=== PATIENT | male | born 1975 ===

== ENCOUNTER 2022-01-26 10:51 | Observation (INO) ==
[~2022-01-26 10:51] MED LIST: Buffered Lidocaine 1% SYRIN 1 ml INTRADERM ONE; Lactated Ringers 1000 ml BAG 1,000 ML IV SCH; Naloxone 0.4 mg VIAL 0.4 mg/ml 1 ml VIAL IV PRN; Ondansetron 4 mg VIAL 2 MG/ML 2 ml VIAL IV PRN; fentaNYL 100 mcg/2 ml 50 MCG/ML VIAL IV PRN
[2022-01-26] MEDS ORDERED: ceFAZolin 2 GM PREMIX 2 GM/50 ML BAG ONE (11:12)
[2022-01-26] MEDS ORDERED: ceFAZolin 1 GM in Dextrose 1 GM/50 ML BAG ONE (11:12)
[2022-01-26] MEDS ORDERED: Vancomycin 1,000 MG VIAL ONE (13:32)
[2022-01-26] MEDS ORDERED: Propofol 10 MG/ML 20 ML BTL ONE (13:33)
[2022-01-26] MEDS ORDERED: Lidocaine 2% PF 5 ML VIAL ONE (13:34)
[2022-01-26] MEDS ORDERED: Midazolam 2 mg/2 ml VIAL 1 mg/ml 2 ml VIAL (2 mg) ONE (13:37)
[2022-01-26] MEDS ORDERED: Rocuronium 50 mg VIAL 10 mg/ml 5 ml VIAL (50 mg) ONE ×2 (14:08→15:18)
[2022-01-26] MEDS ORDERED: fentaNYL 250 mcg/5 ml 50 MCG/ML 5 ml VIAL (250 MCG) ONE (14:12)
[2022-01-26] MEDS ORDERED: HYDROmorphone 0.5 MG/0.5 ML SYRINGE ONE (14:54)
[2022-01-26] MEDS ORDERED: Glycopyrrolate IV 0.2 MG/ML 1 ML VIAL ONE (14:56)
[2022-01-26] MEDS ORDERED: Ondansetron 4 mg VIAL 2 MG/ML 2 ml VIAL ONE (15:01)
[2022-01-26] MEDS ORDERED: Dexamethasone IV 4 MG/ML VIAL 1 ml VIAL ONE (15:01)
[2022-01-26] MEDS ORDERED: Acetaminophen IV 1 GM/100ML 1,000 MG/100 ML BAG IV ONE (15:03)
[2022-01-26] MEDS ORDERED: fentaNYL 100 mcg/2 ml 50 MCG/ML VIAL ONE (15:21)
[2022-01-26] MEDS ORDERED: Morphine 2 MG/ML SYRINGE IV PRN (17:13)
[2022-01-26] MEDS ORDERED: Lactulose 30 ml UDC PO PRN (17:13)
[2022-01-26] MEDS ORDERED: Ondansetron 4 mg VIAL 2 MG/ML 2 ml VIAL IV PRN (17:13)
[2022-01-26] MEDS ORDERED: Ondansetron ODT 4 mg TAB 4 MG TAB PO PRN (17:13)
[2022-01-26] MEDS ORDERED: Magnesium Hydroxide LIQ 30 ML UDC PO PRN (17:13)
[2022-01-26] MEDS: Lactated Ringers 1000 ml BAG 1,000 ML IV SCH (18:32)
[2022-01-26] MEDS ORDERED: Dextrose 50% Syringe 50 ml 25 GM/50 ML SYRINGE IV PUSH PRN (19:46)
[2022-01-26] MEDS: Magnesium Hydroxide LIQ 30 ML UDC PO SCH (21:06)
[2022-01-26] MEDS: ceFAZolin 1 GM ADVAN 1 GM in NS 0.9% 50 ML 50 ML IVPB SCH (22:56)
[2022-01-27] MEDS: ceFAZolin 1 GM ADVAN 1 GM in NS 0.9% 50 ML 50 ML IVPB SCH ×2 (05:16→15:01)
[2022-01-27 05:28] LABS: Hematocrit 33 % (42-52); Mean Platelet Volume 7.8 fL (7.4-10.4); Platelet Count 225 10^3/uL (150-450)
[2022-01-27 05:52] LABS: Calcium 8.5 mg/dL (8.6-10.3); Potassium 4.5 mmol/L (3.5-5.0); eGFR CKD-EPI 115.7 (>60)
[2022-01-27] MEDS: Vitamin THERAPEUTIC TAB PO SCH (07:55)
[2022-01-27] MEDS: Magnesium Hydroxide LIQ 30 ML UDC PO SCH ×2 (07:57→21:37)
[2022-01-27] MEDS: Lactated Ringers 1000 ml BAG 1,000 ML IV SCH ×2 (13:54→18:54)
[2022-01-27 16:00] LABS: ABS Lymphocytes 1.6 10^3/ul (1.0-4.8); ABS Neutrophils 7.9 10^3/ul (1.5-7.7); Eosinophil % 0.4 %; Hematocrit 32 % (42-52); Hemoglobin 10.8 g/dL (14.0-18.0); Lymphocyte % 14.9 %; Mean Corpuscular HGB Conc 33 g/dL (31-36); Mean Corpuscular Hemoglobin 30 pg (27-31); Mean Corpuscular Volume 91 fL (80-94); Mean Platelet Volume 7.3 fL (7.4-10.4); Platelet Count 212 10^3/uL (150-450); Red Blood Count 3.57 10^6 /uL (4.18-5.48); Red Cell Distribution Width 14 % (10-15); White Blood Count 10.5 10^3/uL (3.5-10.8)
[2022-01-27 17:24] LABS: Albumin 3.5 g/dL (3.2-5.2); Albumin/Globulin Ratio 1.7 (1-3); Calcium 8.6 mg/dL (8.6-10.3); Globulin 2.1 g/dL (2-4); Magnesium 1.8 mg/dL (1.9-2.7); Potassium 4.2 mmol/L (3.5-5.0); Total Bilirubin 0.6 mg/dL (0.2-1.0); Total Protein 5.6 g/dL (6.4-8.9); eGFR CKD-EPI 109.2 (>60)
[2022-01-27 17:47] LABS: High Sensitivity Troponin 1 Hr 3 pg/mL (<20)
[2022-01-27] MEDS ORDERED: Magnesium Sulfate IV 1GM/100ML 1 GM/100 ML BAG IV ONE (18:05)
[2022-01-28] MEDS: Lactated Ringers 1000 ml BAG 1,000 ML IV SCH (05:50)
[2022-01-28 06:09] LABS: Hematocrit 30 % (42-52); Mean Platelet Volume 7.4 fL (7.4-10.4); Platelet Count 193 10^3/uL (150-450)
[2022-01-28] MEDS: Magnesium Hydroxide LIQ 30 ML UDC PO SCH (08:36)
[2022-01-28] MEDS: Vitamin THERAPEUTIC TAB PO SCH (08:36)
[2022-01-28 11:01] VITALS: BP 100/63
== END 2022-01-28 16:30 | disposition home or self-care (01) ==
LOC: OR 10:51 → SSU 10:51
PROVIDERS: ADMIT Orthopaedic Surgery; ATTEND Orthopaedic Surgery

== ENCOUNTER 2022-03-06 10:00 | Inpatient (IN) ==
[2022-03-06 11:08] LABS: ABS Basophils 0.1 10^3/ul (0-0.2); ABS Eosinophils 0.2 10^3/ul (0-0.6); ABS Lymphocytes 1.4 10^3/ul (1.0-4.8); ABS Monocytes 0.5 10^3/ul (0-0.8); ABS Neutrophils 3.6 10^3/ul (1.5-7.7); Eosinophil % 3.6 %; Hematocrit 39 % (42-52); Hemoglobin 13.1 g/dL (14.0-18.0); Lymphocyte % 24.4 %; Mean Corpuscular HGB Conc 34 g/dL (31-36); Mean Corpuscular Hemoglobin 31 pg (27-31); Mean Corpuscular Volume 92 fL (80-94); Mean Platelet Volume 6.7 fL (7.4-10.4); Platelet Count 297 10^3/uL (150-450); Red Blood Count 4.28 10^6 /uL (4.18-5.48); Red Cell Distribution Width 14 % (10-15); White Blood Count 5.8 10^3/uL (3.5-10.8)
[2022-03-06 11:48] LABS: C Reactive Protein 10.63 mg/L (<8.01)
[2022-03-06 13:22] LABS: Albumin/Globulin Ratio 1.4 (1-3); Calcium 9.2 mg/dL (8.6-10.3); Globulin 2.9 g/dL (2-4); Potassium 4.7 mmol/L (3.5-5.0); Total Bilirubin 0.5 mg/dL (0.2-1.0); Total Protein 6.9 g/dL (6.4-8.9); eGFR CKD-EPI 109.6 (>60)
[2022-03-06] MEDS ORDERED: Magnesium Hydroxide LIQ 30 ML UDC PO PRN (13:31)
[2022-03-06] MEDS ORDERED: Lactulose 30 ml UDC PO PRN (13:31)
[2022-03-06] MEDS ORDERED: Ondansetron 4 mg VIAL 2 MG/ML 2 ml VIAL IV PRN (13:31)
[2022-03-06] MEDS ORDERED: Ondansetron ODT 4 mg TAB 4 MG TAB PO PRN (13:31)
[2022-03-06] MEDS ORDERED: Iodixanol (CONTRAST) 320 MG/ML 100 ML SDV IV ONE (17:09)
[2022-03-06] MEDS: Magnesium Hydroxide LIQ 30 ML UDC PO SCH (22:09)
[2022-03-07] MEDS ORDERED: Ondansetron 4 mg VIAL 2 MG/ML 2 ml VIAL IV SCH
[2022-03-07] MEDS ORDERED: Phenylephrine IV 10 MG/ML 1 ml VIAL IV SCH
[2022-03-07] MEDS ORDERED: Rocuronium 50 mg VIAL 10 mg/ml 5 ml VIAL (50 mg) IV SCH ×2
[2022-03-07] MEDS ORDERED: ceFAZolin 1 GM in Dextrose 1 GM/50 ML BAG IV SCH
[2022-03-07] MEDS ORDERED: Phenylephrine 40 mcg/mL 10mL (400mcg) SYRINGE IV SCH
[2022-03-07] MEDS ORDERED: Sugammadex 500 MG/5 ML 5 ml VIAL IV PUSH SCH
[2022-03-07] MEDS ORDERED: ceFAZolin 2 GM in NS PREMIX 2 GM/100 ML BAG IVPB SCH
[2022-03-07] MEDS ORDERED: Lidocaine 2% PF 5 ML VIAL INJ SCH
[2022-03-07] MEDS ORDERED: fentaNYL 100 mcg/2 ml 50 MCG/ML VIAL IV SCH ×3
[2022-03-07 06:15] LABS: Hematocrit 38 % (42-52); Hemoglobin 12.2 g/dL (14.0-18.0); Mean Platelet Volume 7.2 fL (7.4-10.4); Platelet Count 299 10^3/uL (150-450)
[2022-03-07 06:41] LABS: Potassium 4.2 mmol/L (3.5-5.0); eGFR CKD-EPI 112.2 (>60)
[2022-03-07] MEDS ORDERED: Naloxone 0.4 mg VIAL 0.4 mg/ml 1 ml VIAL IV PRN (07:58)
[2022-03-07] MEDS ORDERED: HYDROcodone/ACETAMIN 5/325 mg TAB PO PRN (07:58)
[2022-03-07] MEDS ORDERED: fentaNYL 100 mcg/2 ml 50 MCG/ML VIAL IV PRN (07:58)
[2022-03-07] MEDS ORDERED: oxyCODONE/Acetamin 5/325 mg TAB PO PRN (07:58)
[2022-03-07 08:58] LABS: ABS Basophils 0.1 10^3/ul (0-0.2); ABS Eosinophils 0.3 10^3/ul (0-0.6); ABS Lymphocytes 2.1 10^3/ul (1.0-4.8); ABS Monocytes 0.6 10^3/ul (0-0.8); Eosinophil % 4.3 %; Lymphocyte % 34.3 %; Mean Corpuscular HGB Conc 33 g/dL (31-36); Mean Corpuscular Hemoglobin 30 pg (27-31); Mean Corpuscular Volume 92 fL (80-94); Red Blood Count 4.06 10^6 /uL (4.18-5.48); Red Cell Distribution Width 14 % (10-15)
[2022-03-07 09:09] LABS: C Reactive Protein 9.21 mg/L (<8.01)
[2022-03-07 11:14] LABS: Erythrocyte Sed Rate 24 mm/Hr (0-14)
[2022-03-07] MEDS ORDERED: oxyCODONE/Acetamin 5/325 mg TAB ONE (11:43)
[2022-03-07] MEDS: Vitamin THERAPEUTIC TAB PO SCH (12:36)
[2022-03-07] MEDS: Cholecalciferol (VIT D3) 1,000 unit TAB PO SCH (12:36)
[2022-03-07] MEDS: Magnesium Hydroxide LIQ 30 ML UDC PO SCH ×2 (12:37→21:23)
[2022-03-07] MEDS ORDERED: Zosyn 3.375 gm X 1 dose, then dose per Pharmacy IV ONE (14:00)
[2022-03-07] MEDS ORDERED: Vancomycin 2,000 MG in NS 0.9% 500 ml BAG 500 ML IVPB ONE (15:00)
[2022-03-07] MEDS: ZINC GLUCONATE VITAMIN C PO SCH (15:53)
[2022-03-07] MEDS ORDERED: ZOSYN 3.375 GM Q8H per EXTENDED INFUSION IV SCH ×2 (18:00→20:00)
[2022-03-07] MEDS: Vancomycin 1,500 MG in NS 0.9% 250 ml 250 ML IVPB SCH (22:55)
[2022-03-08] MEDS: ZOSYN 3.375 GM Q8H per EXTENDED INFUSION IV SCH ×3 (01:43→16:32)
[2022-03-08] MEDS: Vancomycin 1,500 MG in NS 0.9% 250 ml 250 ML IVPB SCH ×2 (07:03→15:17)
[2022-03-08] MEDS: ZINC GLUCONATE VITAMIN C PO SCH (08:19)
[2022-03-08] MEDS: Cholecalciferol (VIT D3) 1,000 unit TAB PO SCH (08:19)
[2022-03-08] MEDS: Magnesium Hydroxide LIQ 30 ML UDC PO SCH ×2 (08:19→20:58)
[2022-03-08] MEDS: Vitamin THERAPEUTIC TAB PO SCH (08:19)
[2022-03-08 08:57] LABS: ABS Basophils 0.1 10^3/ul (0-0.2); ABS Eosinophils 0.3 10^3/ul (0-0.6); ABS Lymphocytes 1.5 10^3/ul (1.0-4.8); ABS Monocytes 0.6 10^3/ul (0-0.8); ABS Neutrophils 4.7 10^3/ul (1.5-7.7); Eosinophil % 4.5 %; Hematocrit 35 % (42-52); Hemoglobin 11.7 g/dL (14.0-18.0); Mean Corpuscular HGB Conc 33 g/dL (31-36); Mean Corpuscular Hemoglobin 30 pg (27-31); Mean Corpuscular Volume 91 fL (80-94); Mean Platelet Volume 6.9 fL (7.4-10.4); Nucleated Red Blood Cells % 0.1; Platelet Count 268 10^3/uL (150-450); Red Blood Count 3.88 10^6 /uL (4.18-5.48); Red Cell Distribution Width 14 % (10-15); White Blood Count 7.3 10^3/uL (3.5-10.8)
[2022-03-08] MEDS: Enoxaparin 40 MG/0.4 ML SYR SUBCUT SCH ×2 (10:25→23:28)
[2022-03-08] MEDS ORDERED: Vancomycin Trough Check NOTE FOLLOW UP ONE (14:30)
[2022-03-08] MEDS ORDERED: Vancomycin per Pharmacy 1 EA NOTE FOLLOW UP PRN (15:32)
[2022-03-08] MEDS: Vancomycin 1,250 MG in NS 0.9% 250 ml 250 ML IVPB SCH (20:57)
[2022-03-09] MEDS: ZOSYN 3.375 GM Q8H per EXTENDED INFUSION IV SCH ×3 (01:49→18:02)
[2022-03-09 06:02] LABS: Hematocrit 36 % (42-52); Hemoglobin 11.6 g/dL (14.0-18.0); Mean Platelet Volume 7.1 fL (7.4-10.4); Platelet Count 267 10^3/uL (150-450)
[2022-03-09] MEDS: Vancomycin 1,250 MG in NS 0.9% 250 ml 250 ML IVPB SCH (06:06)
[2022-03-09 06:36] LABS: ABS Basophils 0.1 10^3/ul (0-0.2); ABS Eosinophils 0.4 10^3/ul (0-0.6); ABS Lymphocytes 2.4 10^3/ul (1.0-4.8); ABS Monocytes 0.6 10^3/ul (0-0.8); ABS Neutrophils 3.1 10^3/ul (1.5-7.7); Eosinophil % 6.7 %; Hematocrit 36 % (42-52); Hemoglobin 11.5 g/dL (14.0-18.0); Lymphocyte % 35.7 %; Mean Corpuscular HGB Conc 32 g/dL (31-36); Mean Corpuscular Hemoglobin 30 pg (27-31); Mean Corpuscular Volume 93 fL (80-94); Mean Platelet Volume 7.4 fL (7.4-10.4); Platelet Count 273 10^3/uL (150-450); Red Blood Count 3.83 10^6 /uL (4.18-5.48); Red Cell Distribution Width 14 % (10-15); White Blood Count 6.6 10^3/uL (3.5-10.8)
[2022-03-09] MEDS: Magnesium Hydroxide LIQ 30 ML UDC PO SCH ×2 (08:18→23:55)
[2022-03-09] MEDS: Cholecalciferol (VIT D3) 1,000 unit TAB PO SCH (10:55)
[2022-03-09] MEDS: ZINC GLUCONATE VITAMIN C PO SCH (10:55)
[2022-03-09] MEDS: Vitamin THERAPEUTIC TAB PO SCH (10:55)
[2022-03-09] MEDS ORDERED: Enoxaparin 40 MG/0.4 ML SYR SUBCUT SCH (12:00)
[2022-03-09] MEDS: Enoxaparin 40 MG/0.4 ML SYR SUBCUT SCH ×2 (12:41→22:55)
[2022-03-09] MEDS ORDERED: Vancomycin Trough Check NOTE FOLLOW UP ONE (20:30)
[2022-03-10] MEDS: ZOSYN 3.375 GM Q8H per EXTENDED INFUSION IV SCH ×3 (02:11→17:09)
[2022-03-10 05:51] LABS: Hematocrit 34 % (42-52); Hemoglobin 11.2 g/dL (14.0-18.0); Mean Platelet Volume 7.1 fL (7.4-10.4); Platelet Count 265 10^3/uL (150-450)
[2022-03-10] MEDS: Magnesium Hydroxide LIQ 30 ML UDC PO SCH (08:40)
[2022-03-10] MEDS: Cholecalciferol (VIT D3) 1,000 unit TAB PO SCH (09:07)
[2022-03-10] MEDS: Vitamin THERAPEUTIC TAB PO SCH (09:07)
[2022-03-10] MEDS: ZINC GLUCONATE VITAMIN C PO SCH (09:07)
[2022-03-10] MEDS: Enoxaparin 40 MG/0.4 ML SYR SUBCUT SCH ×2 (10:04→23:03)
[2022-03-10 12:36] LABS: Erythrocyte Sed Rate 16 mm/Hr (0-14)
[2022-03-11] MEDS: ZOSYN 3.375 GM Q8H per EXTENDED INFUSION IV SCH ×3 (00:59→18:12)
[2022-03-11 06:01] LABS: Hematocrit 34 % (42-52); Hemoglobin 11.3 g/dL (14.0-18.0); Mean Platelet Volume 7.1 fL (7.4-10.4); Platelet Count 275 10^3/uL (150-450)
[2022-03-11] MEDS: Cholecalciferol (VIT D3) 1,000 unit TAB PO SCH ×2 (08:43→10:55)
[2022-03-11] MEDS: Vitamin THERAPEUTIC TAB PO SCH ×2 (08:44→10:55)
[2022-03-11] MEDS: ZINC GLUCONATE VITAMIN C PO SCH ×2 (08:46→10:55)
[2022-03-11] MEDS: Enoxaparin 40 MG/0.4 ML SYR SUBCUT SCH (22:16)
[2022-03-12] MEDS: ZOSYN 3.375 GM Q8H per EXTENDED INFUSION IV SCH (01:48)
[2022-03-12] MEDS ORDERED: ceFAZolin 2 GM in NS PREMIX 2 GM/100 ML BAG IVPB SCH (06:00)
[2022-03-12 06:02] LABS: ABS Basophils 0.1 10^3/ul (0-0.2); ABS Eosinophils 0.4 10^3/ul (0-0.6); ABS Lymphocytes 2.1 10^3/ul (1.0-4.8); ABS Monocytes 0.4 10^3/ul (0-0.8); ABS Neutrophils 2.2 10^3/ul (1.5-7.7); Eosinophil % 7.2 %; Hematocrit 33 % (42-52); Hemoglobin 10.8 g/dL (14.0-18.0); Lymphocyte % 40.4 %; Mean Corpuscular HGB Conc 33 g/dL (31-36); Mean Corpuscular Hemoglobin 30 pg (27-31); Mean Corpuscular Volume 91 fL (80-94); Mean Platelet Volume 6.8 fL (7.4-10.4); Platelet Count 266 10^3/uL (150-450); Red Blood Count 3.64 10^6 /uL (4.18-5.48); Red Cell Distribution Width 14 % (10-15); White Blood Count 5.1 10^3/uL (3.5-10.8)
[2022-03-12] MEDS: Cholecalciferol (VIT D3) 1,000 unit TAB PO SCH ×2 (08:13→10:04)
[2022-03-12] MEDS: ZINC GLUCONATE VITAMIN C PO SCH ×2 (08:14→10:06)
[2022-03-12] MEDS: Vitamin THERAPEUTIC TAB PO SCH ×2 (08:14→10:05)
[2022-03-12] MEDS: Enoxaparin 40 MG/0.4 ML SYR SUBCUT SCH (10:06)
[2022-03-12 11:41] VITALS: BP 112/68
== END 2022-03-12 14:40 | disposition home or self-care (01) | DRG 711 ==
LOC: ED 10:00 → EDHOLD 13:32 → SSU 22:39
PROVIDERS: ADMIT Orthopaedic Surgery; ATTEND Orthopaedic Surgery